=== PATIENT | male | born 1995 | race Caucasian/White ===

== ENCOUNTER 2021-09-13 15:17 | Emergency (ER) | payer OTHER, MEDICARE, MEDICAID, SELFPAY ==
[2021-09-13 15:26] VITALS: BP 172/87; PULSE 102; RESP 20; TEMP 36.9; O2SAT 98; BMI 25.8
[2021-09-13 15:51] VITALS: PULSE 118; O2SAT 100
[2021-09-13] MEDS: PROPARACAINE 0.5% OPHTH SOL 1 DROPS EYE-LEFT (15:58)
[2021-09-13] MEDS: FLUORESCEIN 1 MG STRIP EYE-LEFT (15:59)
[2021-09-13 16:00] VITALS: PULSE 108; RESP 11; O2SAT 97
[2021-09-13 16:30] VITALS: PULSE 112; RESP 18; O2SAT 96
--- NOTE | 2021-09-13 16:37 | ED_ITS ---
HPI - Eye Problem General Chief complaint: Eye Problems Stated complaint: Swollen Left Eye Time Seen by Provider: 09/13/21 16:07 Source: patient Mode of arrival: Ambulatory History of Present Illness HPI Narrative: This 26-year-old man comes to the ER today because of swelling in his left eye. He has some chronic visual problems but this is unrelated to the current complaint. He says that the day before yesterday he noticed a small er ythematous papule that felt like a small pimple on his cheek bone below his left eye. This did not really concerned him very much. He woke up yesterday morning with some swelling of the lower eyelid. He took some ibuprofen and later in the day the swelling had almost completely resolved. It was not particularly painful nor did he feel fever. When he woke up this morning the swelling was dramatic including the entire lower eyelid and the upper eyelid as well. It is only mildly painful. He denies that it is more painful with extraocular movements. He denies systemic symptoms of illness such as fever chills or nausea or vomiting. He says that his heart rate is commonly elevated. He denies any other symptoms. Related Data Allergies Allergy/AdvReac Type Severity Reaction Status Date / Time No Known Drug Allergies Allergy Verified 09/13/21 15:32 Review of Systems Review of Systems Narrative: Complete review of systems is otherwise negative. Patient History Social History Smoking Status: Current every day smoker Smoking Status: Current every day smoker tobacco type: e-cigarettes alcohol intake frequency: holidays/special occasions only Substance Use Type: marijuana Exam Narrative Exam Narrative: GENERAL: Alert, cooperative and in no distress. HEAD: Atraumatic. Normocephalic. EYES: Sclera are clear without icterus. Extraocular movements are full. Dramatic periorbital swelling of the upper and lower eyelids. The skin is not tender to palpate. It is mildly erythematous. It is not warm to touch. ENT: No rhinorrhea. Oropharynx is moist. Mouth exam is benign. NECK: Supple. Full range of motion. No cervical adenopathy. CARDIOVASCULAR: Normal rate and rhythm without murmur gallop or rub. RESPIRATORY: Clear to auscultation. Breath sounds equal bilaterally. No wheezes, rales, or rhonchi. GASTROINTESTINAL: Abdomen soft, non-tender, nondistended. EXTREMITIES: No edema, full range of motion. No obvious trauma. BACK: Normal inspection, no CVA tenderness. NEURO: Nonfocal examination, normal speech, normal gait. SKIN: No rash or erythema of visible areas PSYCH: Normally oriented. Normal range of affect. Appropriate behavior Initial Vital Signs Initial Vital Signs: Vital Signs Temperature 98.4 F 09/13/21 15:26 Pulse Rate 102 H 09/13/21 15:26 Respiratory Rate 20 09/13/21 15:26 Blood Pressure 172/87 H 09/13/21 15:26 Pulse Oximetry 98 09/13/21 15:26 Oxygen Delivery Method 09/13/21 15:26 Course Orders Ordered: Acetaminophen (Acetaminophen 325 Mg Tablet) 975 mg PO NOW ONE Stop: 09/13/21 16:37 Cephalexin HCl (Cephalexin 250 Mg Capsule) 500 mg PO NOW ONE Stop: 09/13/21 16:37 Diphenhydramine HCl (Diphenhydramine 50 Mg/Ml Vial) 25 mg IV NOW ONE Stop: 09/13/21 16:37 Ibuprofen (Ibuprofen 400 Mg Tablet) 800 mg PO NOW ONE Stop: 09/13/21 16:37 Discontinued Medications Fluorescein Sodium (Fluorescein 1 Mg Strip) 1 mg EYE-LEFT NOW ONE Stop: 09/13/21 15:50 Last Admin: 09/13/21 15:59 Dose: 1 mg Documented By: GAURANG Proparacaine HCl (Proparacaine 0.5% Ophth Lazara) 1 drops EYE-LEFT NOW ONE Stop: 09/13/21 15:54 Last Admin: 09/13/21 15:58 Dose: 1 drop Documented By: GAURANG Tetracaine HCl (Tetracaine 0.5% Ophth Drops 4 Ml) 2 drops EYE-LEFT INTRA-OP ONE Stop: 09/13/21 15:51 Last Admin: 09/13/21 15:53 Dose: Not Given Documented By: ASHOK Vital Signs Vital signs: Vital Signs - 8 hr 09/13/21 15:26 09/13/21 15:51 09/13/21 16:00 Temperature 98.4 F Pulse Rate 102 H 118 H 108 H Respiratory Rate 20 11 L Blood Pressure 172/87 H Pulse Oximetry 98 100 97 Oxygen Delivery Method Room Air MDM - Eye Problem MDM Narrative Medical decision making narrative: This eye swelling I believe it is probably an allergic reaction to a bug bite of some sort. I do not suspect periorbital or orbital cellulitis. Because of his tachycardia and the dramatic nature I think empiric therapy with a skin chaparrita covering antibiotic is appropriate though again I do not think this is the most likely diagnosis. I discussed the risks and benefits of withholding antibiotic therapy and the patient would like to proceed with empiric therapy at this time. Careful return precautions given especially if he develops pain with extraocular movements, fever, repeated vomiting or worsening eye pain. Discharge Plan Departure Patient Disposition: Home Clinical Impression: Insect bite, Periorbital swelling Activity Restrictions/Additional Instructions: I am glad that you do not appear to have a dangers eye problem. I recommend cool compresses. I recommend ibuprofen and Benadryl and Tylenol for discomfort and swelling. As we discussed we are going to put you on an antibiotic in case there is any bacterial component to the swelling in her eye we. I am not sure that there is, but it seems reasonable to treat as if there is. Follow-up right away for painful eye movements, severe fever, much worsening pain. See your doctor in 2 or 3 days if this swelling is not very significantly improved. Referrals: Miscellaneous,Doctor, [Primary Care Provider] -
[2021-09-13 16:45] VITALS: BP 157/86; PULSE 105; RESP 14; O2SAT 95
[2021-09-13] MEDS: ACETAMINOPHEN 325 MG TABLET 975 MG PO (16:49)
[2021-09-13] MEDS: cephALEXin 250 MG CAPSULE 500 MG PO (16:50)
[2021-09-13] MEDS: IBUPROFEN 400 MG TABLET 800 MG PO (16:51)
[2021-09-13] MEDS: diphenhydrAMINE 25 MG TABLET PO (17:00)
[2021-09-13 17:09] VITALS: BP 157/86; PULSE 97; RESP 18; O2SAT 98
== END 2021-09-13 17:09 | disposition home or self-care (01) ==
PROVIDERS: Emergency Provider Family Medicine Addiction Medicine
DX: H57.89 Other specified disorders of eye and adnexa (principal); W57.XXXA Bitten or stung by nonvenomous insect and other nonvenomous arthropods, initial encounter
CPT/HCPCS: 99283; J1200